=== PATIENT | male | born 1985 | race Asian ===

== ENCOUNTER 2019-09-10 13:17 | Emergency (ER) | payer SELFPAY ==
[~2019-09-10] VITALS: Ht 162.6 cm; Wt 66.8 kg
[2019-09-10] MEDS ORDERED: SILVER SULFADIAZINE 1% 25 GM CREAM TP ONE (15:15)
[2019-09-10] MEDS: HYDROCODONE/ACETAMINOPHEN 5-325 MG TABLET PO ONE ×2 (16:26→16:33)
[2019-09-10 16:34] VITALS: BP 129/91
== END 2019-09-10 17:31 | disposition home or self-care (01) ==
LOC: EMS 13:21
DX: T20.10XA Burn of first degree of head, face, and neck, unspecified site, initial encounter (principal); X08.8XXA Exposure to other specified smoke, fire and flames, initial encounter; Y93.89 Activity, other specified; Y92.89 Other specified places as the place of occurrence of the external cause; Y99.8 Other external cause status
CPT/HCPCS: 16000